=== PATIENT | female | born 1990 | race Caucasian/White ===

== ENCOUNTER 2022-06-12 21:23 | Emergency (ER) | payer MEDICAID ==
[~2022-06-12] VITALS: Ht 152.4 cm; Wt 59.9 kg
[2022-06-12 22:43] VITALS: BP 104/68
--- NOTE | 2022-06-12 22:43 | NUR ---
BIBFAMILY C/O H/A X1 WEEK. 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
--- NOTE | 2022-06-12 22:56 | NUR ---
DR. NASREEN ELLIOTT AT PT'S BEDSIDE FOR EVAL
--- NOTE | 2022-06-12 23:11 | NUR ---
Patient discharged to home in stable condition. Written and verbal after care instructions given. Patient verbalizes understanding of instruction.
== END 2022-06-12 23:00 | disposition home or self-care (01) ==
LOC: ER 21:31
DX: G43.909 Migraine, unspecified, not intractable, without status migrainosus (principal)